=== PATIENT | male | born 1995 | race Caucasian/White ===

== ENCOUNTER 2018-01-16 09:29 | Emergency (ER) | payer SELFPAY ==
[2018-01-16 09:35] VITALS: BMI 22.5
--- NOTE | 2018-01-16 09:42 | DR.URIAD ---
HPI - Time Seen Time seen: 09:45 - PCP Primary Care Physician: SHAYAN - HPI Comment HPI Comment: PAIN ASSOCIATED WITH SOB. DENIES N/V. SLIGHT URI SYMTOMS. - Complaint Chief Complaint Doctors Comments: CHEST PAIN RT CHEST TIMES 2 DAYS. Chief Complaint:: PT C/O HAVING CHEST PAIN TO HIS RIGHT CHEST AREA, ESPECIALLY WHEN HE EXHAILES AND THAT HE CAN'T REALLY DESCRIBE PAIN..BR PT C/O THAT PAIN IS BETTER NOW THAN IT WAS 2 DAY'S AGO,,,BR Self Treatment fo Chief Complaint: NONE - Reviewed Nurses Notes Reviewed: Yes - Source History Provided: Patient - Mode of Arrival Mode of Arrival: Ambulatory - Timing Onset of Chief Complaint: 01/14/18 - Context Recent Treated Infections: None History of Respiratory: None - Quality Quality of Cough: Nonproductive Rhinorrhea: None Shortness of Breath: Moderate - Associated Signs and Symptoms Other Signs and Symptoms: Cough, Shortness of Breath, URI PMH - PMH Past Medical History: No Past Surgical History: Yes Past Surgical History Comment: TUMOR FROM SHOULDER,, - Family History History of Family Medical Conditions: No - Social History Does patient currently use any type of tobacco product: Yes Have you used tobacco products in the last 12 months: Yes Type of Tobacco Use: Cigarettes Does any household member use tobacco: No Alcohol Use: None Do you use any recreational Drugs:: Yes (THC) Lives With: Family Lives Where: Home - infectious screening In the last 2 months have you had wt loss of >10#?: NO Have you had fever, night sweats or hemotysis?: No Have you traveled outside the country in the last 6 months?: No Isolation: Standard ROS - Review of Systems Constitutional: No Symptoms Reported. negative: Chills, Fever, Weakness, Fatigue Eyes: No Symptoms Reported. negative: Eye Pain, Discharge ENTM: Nose Discharge, Nose Congestion, Throat Pain. negative: Ear Pain Respiratoy: Productive Cough, Short of Breath. negative: Wheezing, Hemoptysis Cardiovascular: Chest Pain. negative: Edema, Palpitations Gastrointestinal/Abdominal: negative: Abdominal Pain, Diarrhea, Nausea, Vomiting Genitourinary: No Symptoms Reported. negative: Dysuria, Frequency, Hematuria Neurological: No Symptoms Reported. negative: Headache, Weakness, Dizziness Musculoskeletal: Muscle Pain Integumentary: No Symptoms Reported Hematologic/Lymphatic: No Symptoms Reported Endocrine: No Symptoms Reported All Other Systems: Reviewed and Negative PE - Vital Signs Vitals: Temperature 97.0 F Pulse Rate 76 Respiratory Rate 20 Blood Pressure [Left Arm] 116/58 Blood Pressure 147/76 O2 Sat by Pulse Oximetry 100 - General Limitations: No Limitations General Appearance: Alert - Head Head Exam: Normal Inspection - Eyes Eye exam: Normal Appearance - ENT ENT Exam: Normal External Ear Exam External Ear Exam: Normal External Inspection TM/Canal Exam: Bilateral Normal Mouth Exam: Normal Inspection Throat Exam: Normal Inspection - Neck Neck Exam: Trachea Midline - Chest Chest Inspection: Symmetric Chest Wall Rise - Respiratory Respiratory Exam: Normal Lung Sounds Bilat Respiratory Exam: Bilateral Clear to Auscultation - Cardiovascular Cardiovascular Exam: Regular Rate, Normal Rhythm, Normal Heart Sounds - Abdominal Exam Abdominal Exam: Normal Bowel Sounds, Soft. negative: Tenderness - Extremeties Extremities Exam: Normal Inspection - Back Back Exam: Normal Inspection - Neurologic Neurological Exam: Alert, Oriented X3 - Psychiatric Psychiatric Exam: Normal Affect, Normal Mood - Skin Skin Exam: Normal Color MDM - Additional Information Additional Information Obtained From: Family - Differential Diagnosis Differential Diagnosis: Viral pharyngitis, Pneumonia, Sinsusitis, URI (P[place] , [place], PE) Course - Treatment Treatment: SEE ORDERS. - Education/Counseling Education/Counseling: Patient, Family, Education Educated On: Diagnosis, Needs for Follow Up ROR - Labs Reviewed Laboratory Results Reviewed?: Yes Result Diagrams: 01/16/18 10:08 01/16/18 10:08 Laboratory: WBC 14.7 X10^3/uL (3.6-10.0) H 01/16/18 10:08 RBC 4.76 X10^6/uL (4.7-6.0) 01/16/18 10:08 Hgb 14.2 g/dL (13.5-18.0) 01/16/18 10:08 Hct 41.5 % (42.0-54.0) L 01/16/18 10:08 MCV 87.2 fL (80.0-100.0) 01/16/18 10:08 MCH 29.8 pg (27.0-34.0) 01/16/18 10:08 MCHC 34.2 g/dL (33.0-35.0) 01/16/18 10:08 RDW 13.8 % (11.6-16.5) 01/16/18 10:08 Plt Count 232 X10^3/uL (150.0-450.0) 01/16/18 10:08 MPV 7.4 fL (7.4-11.0) 01/16/18 10:08 Neut % (Auto) 73.6 % (42.0-75.0) 01/16/18 10:08 Lymph % (Auto) 17.0 % (21.0-51.0) L 01/16/18 10:08 [place] % (Auto) 8.2 % (0.0-13.0) 01/16/18 10:08 Eos % (Auto) 0.8 % (0.9-2.9) L 01/16/18 10:08 Baso % (Auto) 0.4 % (0.2-1.0) 01/16/18 10:08 Neut # (Auto) 10.8 x10^3/uL (2.2-4.8) H 01/16/18 10:08 Lymph # (Auto) 2.5 X10^3/uL (1.3-2.9) 01/16/18 10:08 [place] # (Auto) 1.2 x10^3/uL (0.3-0.8) H 01/16/18 10:08 Eos # (Auto) 0.1 x10^3/uL (0.0-0.2) 01/16/18 10:08 Baso # (Auto) 0.1 X10^3/uL (0.0-0.1) 01/16/18 10:08 Absolute Nucleated RBC 0.0 /100WBC 01/16/18 10:08 D-Dimer < 100 ng/mL (0-400) 01/16/18 10:08 Sodium 139 mmol/L (136-145) 01/16/18 10:08 Corrected Sodium TNP 01/16/18 10:08 Potassium 3.7 mmol/L (3.5-5.1) 01/16/18 10:08 Chloride 104 mmol/L (98-107) 01/16/18 10:08 Carbon Dioxide 26.5 mmol/L (21-32) 01/16/18 10:08 BUN 11 mg/dL (7-18) 01/16/18 10:08 Creatinine 0.92 mg/dL (0.70-1.30) 01/16/18 10:08 Est GFR (MDRD) Af Amer > 60 (>60) 01/16/18 10:08 Est GFR (MDRD) Non-Af > 60 (>60) 01/16/18 10:08 Glucose 101 mg/dL (65-99) H 01/16/18 10:08 Calcium 8.6 mg/dL (8.5-10.1) 01/16/18 10:08 Corrected Calcium TNP 01/16/18 10:08 Total Bilirubin 0.50 mg/dL (0.2-1.0) 01/16/18 10:08 AST 19 Units/L (15-37) 01/16/18 10:08 ALT 22 Units/L (12-78) 01/16/18 10:08 Alkaline Phosphatase 91 Units/L (46-116) 01/16/18 10:08 Creatine Kinase 91 Units/L (39-308) 01/16/18 10:08 CK-MB (CK-2) 1.0 ng/mL (0-4.0) 01/16/18 10:08 CK/CKMB % Calc 1.1 % (<4) 01/16/18 10:08 Troponin I < 0.02 ng/mL (0-1.5) 01/16/18 10:08 Total Protein 7.3 g/dL (6.4-8.2) 01/16/18 10:08 Albumin 3.8 g/dL (3.4-5.0) 01/16/18 10:08 Globulin 3.5 g/dL (2.5-4.5) 01/16/18 10:08 Albumin/Globulin Ratio 1.1 Ratio (1.1-2.1) 01/16/18 10:08 H. pylori IgG Antibody Negative (NEGATIVE) 01/16/18 10:08 - XRAY XRAY Interpreted by: Radiologist XRAY Findings: REPORT DISCUSS WITH PATIENT AND FAMILY. - EKG Rhythm: NSR (EKG NOTED) - Diagnosis Discharge Problem: Bronchitis Chest pain Qualifiers: Chest pain type: unspecified Qualified Code(s): R07.9 - Chest pain, unspecified - Discharge Plan Disposition: 01 HOME, SELF-CARE Condition: Stable Prescriptions: Benzonatate [TESSALON PERLES *] 200 mg PO TID PRN #20 cap PRN Reason: Cough Doxycycline Hyclate [Vibramycin] 100 mg PO BID #20 cap Ibuprofen [MOTRIN TAB 800 MG *] 800 mg PO Q8H PRN #20 tab PRN Reason: Pain/Inflammation Ranitidine HCl [ZANTAC TAB 150 MG *] 150 mg PO BID #60 tab - Follow ups/Referrals Follow ups/Referrals: BRENNAN PEREZ [STAFF PHYSICIAN] - 2 days NFD,None [Primary Care Provider] - 2 days - Instructions Instructions: Chest Wall Pain, [id number], Acute Bronchitis, Adult, Easy-to- Read, Nonspecific Chest Pain, [id number] Additional Instructions: RETURN TO ED IF WORSE.
[2018-01-16] MEDS ORDERED: ZOFRAN INJ 4 MG VIAL IVP ONE (09:53)
[2018-01-16] MEDS ORDERED: PEPCID 20 MG IV PREMIX* 20 MG/50 ML BAG IV ONE ×2 (09:53→09:54)
[2018-01-16] MEDS ORDERED: ZOFRAN INJ 4 MG VIAL ONE (09:54)
[2018-01-16] MEDS ORDERED: NS 1000 ML 1,000 ML ONE (09:54)
[2018-01-16] MEDS ORDERED: NS 1000 ML 1,000 ML IV ONE (10:16)
[2018-01-16 10:22] LABS: BASOPHILS # (AUTO) 0.1 X10^3/uL (0.0-0.1); BASOPHILS % (AUTO) 0.4 % (0.2-1.0); EOSINOPHILS # (AUTO) 0.1 x10^3/uL (0.0-0.2); EOSINOPHILS % (AUTO) 0.8 % (0.9-2.9); HEMATOCRIT 41.5 % (42.0-54.0); HEMOGLOBIN 14.2 g/dL (13.5-18.0); LYMPHOCYTES # (AUTO) 2.5 X10^3/uL (1.3-2.9); MEAN CORPUSCULAR HEMOGLOBIN 29.8 pg (27.0-34.0); MEAN CORPUSCULAR HGB CONC 34.2 g/dL (33.0-35.0); MEAN CORPUSCULAR VOLUME 87.2 fL (80.0-100.0); MEAN PLATELET VOLUME 7.4 fL (7.4-11.0); MONOCYTES # (AUTO) 1.2 x10^3/uL (0.3-0.8); MONOCYTES % (AUTO) 8.2 % (0.0-13.0); NEUTROPHILS # (AUTO) 10.8 x10^3/uL (2.2-4.8); NEUTROPHILS % (AUTO) 73.6 % (42.0-75.0); PLATELET COUNT 232 X10^3/uL (150.0-450.0); RED BLOOD COUNT 4.76 X10^6/uL (4.7-6.0); RED CELL DISTRIBUTION WIDTH 13.8 % (11.6-16.5); WHITE BLOOD COUNT 14.7 X10^3/uL (3.6-10.0)
[2018-01-16 10:35] LABS: BLOOD UREA NITROGEN 11 mg/dL (7-18); CALCIUM 8.6 mg/dL (8.5-10.1); CARBON DIOXIDE 26.5 mmol/L (21-32); CHLORIDE 104 mmol/L (98-107); CREATININE 0.92 mg/dL (0.70-1.30); SODIUM 139 mmol/L (136-145); TROPONIN I < 0.02 ng/mL (0-1.5); eGFR BLACK RACES > 60 (>60); eGFR NON BLACK RACES > 60 (>60)
[2018-01-16 10:39] LABS: ALANINE AMINOTRANSFERASE 22 Units/L (12-78); ALBUMIN 3.8 g/dL (3.4-5.0); ALKALINE PHOSPHATASE 91 Units/L (46-116); ASPARTATE AMINO TRANSFERASE 19 Units/L (15-37); CKMB % 1.1 % (<4); CREATINE KINASE 91 Units/L (39-308); TOTAL PROTEIN 7.3 g/dL (6.4-8.2)
[2018-01-16 11:33] VITALS: BP 116/58
[2018-01-16] MEDS ORDERED: TORADOL 30 MG VIAL IVP ONE (12:01)
[2018-01-16] MEDS ORDERED: LEVSIN/MAALOX/LIDOC VISC PO ONE (12:01)
--- NOTE | 2018-01-16 12:22 | RAD ---
History: Chest pain for 2 days Study: Portable AP chest Comparison: None Findings: The lungs are clear and the heart and mediastinum are unremarkable. There is no edema or ef fusion. No bony abnormality is demonstrated. Impression: No active cardiopulmonary disease Reported By:
[2018-01-16] MEDS ORDERED: LEVSIN/MAALOX/LIDOC VISC ONE (12:31)
[2018-01-16] MEDS ORDERED: TORADOL 30 MG VIAL ONE (12:31)
== END 2018-01-16 12:47 | disposition home or self-care (01) ==
LOC: ER 09:49
DX: J40 Bronchitis, not specified as acute or chronic (principal); R07.89 Other chest pain
CPT/HCPCS: 36415; 71045; 80053; 82550; 82553; 84484; 85025; 85378; 86677; 93005; 93010; 96365; 96374; 96375; 99283; A4222; S0028; J1885; J2405